=== PATIENT | male | born 1990 ===

== ENCOUNTER → 2019-12-14 09:56 | Outpatient (CLI) | payer OTHER, SELFPAY ==
--- NOTE | ~2019-12-14 | US_ITS ---
EXAMINATION: US scrotum doppler DATE: 12/14/2019 10:55 INDICATION: Testicular pain TECHNIQUE: Testicular sonogram utilizing grayscale and Doppler COMPARISON: None. FINDINGS: The right testis measures 4.4 x 2.1 x 2.7 cm. The left testis measures 4.1 x 2.3 x 3.0 cm. Symmetric normal grayscale appearance to both testes. There is normal vascular flow to both testes. The right e pididymis is normal with normal vascular flow. The left epididymis is normal with normal vascular opal w. No hydrocele. There is augmentation with Valsalva of normal caliber veins along the left spermatic cord with no dilation of the veins of the left or right to suggest varicocele. IMPRESSION: 1. Normal scrotal ultrasound. Reviewed, dictated and finalized at location A. L [employer]
== END ==
PROVIDERS: PCP Emergency Medicine; Visit Provider Emergency Medicine
DX: N50.819 Testicular pain, unspecified (principal)
CPT/HCPCS: 76870; 93976

== ENCOUNTER → 2020-03-05 07:49 | Outpatient (CLI) | payer OTHER, SELFPAY ==
--- NOTE | ~2020-03-05 | US_ITS ---
EXAMINATION: US thyroid DATE: 03/05/2020 08:11 INDICATION: Hypothyroidism. TECHNIQUE: Multiple ultrasound images of the thyroid were obtained. COMPARISON: None. FINDINGS: The right thyroid lobe measures 5.5 x 1.8 x 1.8 cm. The left thyroid lobe measures 5.0 x 1.7 x 1.8 c m. The thyroid is diffusely heterogeneous and hypoechoic. Vascularity is normal. In the left thyroid lobe, there is a 7 mm solid, hypoechoic, [id number] nodule with ill-defined margin without echo genic foci (TI-RADS TR4). IMPRESSION: 1. Heterogeneous thyroid, likely chronic lymphocytic (Nancy) thyroiditis. 2. Small thyroid nodule, likely not clinically significant. No follow-up is needed. Reviewed, dictated and finalized at location A. ROLLER IMPRESSION: 1. Heterogeneous thyroid, likely chronic lymphocytic (Nancy) thyroiditis. 2. Small thyroid nodule, likely not clinically significant. No follow-up is nee ded.
== END ==
PROVIDERS: PCP Emergency Medicine; Visit Provider Emergency Medicine
DX: E03.9 Hypothyroidism, unspecified (principal)
CPT/HCPCS: 76536